=== PATIENT | male | born 1960 ===

== ENCOUNTER 2025-06-02 14:05 | Emergency (ER) | payer OTHER ==
[~2025-06-02] VITALS: Ht 170.2 cm; Wt 107.5 kg
[~2025-06-02 14:05] MED LIST: NORFLEX100 MG
[2025-06-02 17:39] LABS: BASO % 0.3 % (0.1-1.2); EOS # 0.00 (0.04-0.54); EOS % 0.0 % (0.7-7.0); LYMPH # 2.06 (1.18-3.74); LYMPH % 21.6 % (19.3-53.1); MEAN PLATELET VOLUME 10.60 fl (9.4-12.4); MONO # 0.46 (0.24-0.82); MONO % 4.8 % (4.7-12.5); NEUT # 6.54 (1.56-6.13); NEUT % 68.5 % (34.0-71.1); RED CELL DISTRIBUTION WIDTH 15.2 % (11.6-14.4)
[2025-06-02 18:00] LABS: ALT/SGPT 55.0 U/L (12-78); AST/SGOT 20.0 U/L (15-37); BILIRUBIN TOTAL 0.61 mg/dL (0.3-1.2); BUN CREA RATIO 14.0 (7.0-25.0); CREATININE SERUM 1.4 mg/dL (0.70-1.30); GFR 50.86; GLOBULINA 3.7 G/DL (2.4-3.5); OSMOLALITY SERUM 298.0 MOSM/KG (275-295)
[2025-06-02 18:12] LABS: URINE APPEARANCE Clear; URINE BILIRRUBIN Negative (NEGATIVE); URINE BLOOD Trace; URINE COLOR Yellow; URINE KETONE Negative (NEGATIVE); URINE LEUKOCYTE Negative; URINE NITRATE Negative; URINE PROTEIN Negative (NEGATIVE); URINE UROBILINOGEN 0.2 E.U./dl
[2025-06-02 18:16] LABS: URINE BACTERIA 25.2 uL (0.0-1933); URINE EPITHELIAL CELLS 6.4 uL (0.0-38.8); URINE RBC 7.1 uL (0.0-20.8); URINE WBC 2.1 uL (0.0-23.2)
[2025-06-02 18:26] LABS: COVID-19 AG NEGATIVE (NEGATIVE)
[2025-06-02 18:26] LABS: URINE CAST 0.29 uL (0.0-1.40); URINE GLUCOSE >=1000 MG/DL (NEGATIVE)
[2025-06-02 18:33] LABS: GLUCOSE FASTING 454.0 mg/dL (65-100)
[2025-06-02 18:55] LABS: BAND MAN 2.0 %; LYMPHOCYTE MAN 14.0 %; METAMYELOCYTE 1.0 %; MONOCYTE MAN 3.0 %; MYELOCYTE 1.0 %; NEUTROPHILS MAN 77.0 %
[2025-06-02] MEDS ORDERED: INSULIN REGULAR, HUMAN 1,000 UNIT/10 ML UNITS SUBCUTANEO ONE ×2 (19:00→23:45)
[2025-06-02] MEDS ORDERED: INSULIN LISPRO 1,000 UNIT/10 ML UNITS SUBCUTANEO ONE (21:45)
== END 2025-06-03 03:53 ==
LOC: ER 14:05
PROVIDERS: General Practice
DX: R42 Dizziness and giddiness (principal); E11.65 Type 2 diabetes mellitus with hyperglycemia; R53.81 Other malaise; R53.1 Weakness; Z20.822 Contact with and (suspected) exposure to COVID-19; I10 Essential (primary) hypertension; Z88.1 Allergy status to other antibiotic agents